=== PATIENT | female | born 1965 | race Caucasian/White ===

== ENCOUNTER 2024-08-27 17:31 | Emergency (ER) | payer BC ==
[2024-08-27] MEDS ORDERED: Sodium Chloride 0.9% 10 ML Syringe FLUSH PRN (17:33)
[2024-08-27] MEDS: Aspirin 81 MG Tab.Chew PO ONE (17:39)
[2024-08-27 17:48] LABS: BASOPHILS ABSOLUTE AUTO 0.04 K/uL (0.00-0.20); BASOPHILS PERCENT AUTO 0.6 % (0.0-2.0); EOSINOPHILS ABSOLUTE AUTO 0.06 K/uL (0.00-0.50); EOSINOPHILS PERCENT AUTO 0.9 % (0.0-5.0); HEMOGLOBIN 13.3 g/dL (11.7-15.5); IMMATURE GRAN ABSOLUTE AUTO 0.01 10^3/uL (0.00-0.04); IMMATURE GRAN PERCENT AUTO 0.1 % (0.0-0.4); LYMPHOCYTES ABSOLUTE AUTO 2.51 K/uL (0.50-3.50); MEAN CORPUSCULAR HEMOGLOBIN 27.5 pg (28.2-33.3); MEAN CORPUSCULAR HGB CONC 32.4 g/dL (31.7-36.0); MEAN CORPUSCULAR VOLUME 84.9 fL (84.0-98.0); MONOCYTES ABSOLUTE AUTO 0.55 K/uL (0.00-1.00); MONOCYTES PERCENT AUTO 8.1 % (2.0-14.0); NEUTROPHILS ABSOLUTE AUTO 3.62 K/uL (1.40-7.00); NEUTROPHILS PERCENT AUTO 53.3 % (45.0-80.0); PLATELET COUNT,PLT 248 K/uL (150-350); RED BLOOD CELL COUNT 4.83 M/uL (3.77-5.09); RED CELL DISTRIBUTION WIDTH 13.2 % (11.2-14.1); WHITE BLOOD CELL COUNT,WBC 6.8 K/uL (4.0-10.2)
[2024-08-27] MEDS ORDERED: Labetalol 20 MG/4 ML Syringe IVPUSH ONE (18:02)
[2024-08-27 18:11] LABS: PROTHROMBIN TIME 9.9 SEC (9.0-11.1); PTT,PARTIAL THROMBOPLSTIN TIME 24.5 SEC (23.8-34.4)
[2024-08-27 18:18] LABS: BILIRUBIN TOTAL 0.3 mg/dL (0.2-1.0); C-REACTIVE PROTEIN 1.56 mg/dL (0.05-0.30); CALCIUM 9.3 mg/dL (8.5-10.1); CARBON DIOXIDE,CO2 30.8 mmol/L (21.0-32.0); CREATININE 0.76 mg/dL (0.51-1.17); EST CRCL DRUG DOSING (CG) 75.53 mL/min; MAGNESIUM 1.9 mg/dL (1.8-2.4); POTASSIUM,K 3.8 mmol/L (3.5-5.1); PROTEIN TOTAL,TP 8.3 g/dL (6.4-8.2)
[2024-08-27 18:59] LABS: TSH ULTRASENSITIVE 1.409 mIU/mL (0.358-3.740)
[2024-08-27 19:08] VITALS: BP 149/83; PULSE 58
[2024-08-27] MEDS: Meclizine 25 MG Tab PO ONE (19:34)
[2024-08-27] MEDS: Furosemide 20 MG Tab PO ONE (20:24)
[2024-08-28 03:28] LABS: HEMOGLOBIN A1C 8.2 % (4.3-5.7)
== END 2024-08-27 20:31 | disposition home or self-care (01) ==
LOC: LL.ED 17:31
DX: I10 Essential (primary) hypertension (principal); Z87.891 Personal history of nicotine dependence; Z88.5 Allergy status to narcotic agent; Z79.899 Other long term (current) drug therapy
CPT/HCPCS: 70450; 71045; 80053; 82150; 83036; 83605; 83690; 83735; 83880; 84436; 84443; 84484; 85025; 85379; 85610; 85730; 86140; 93005; 93010; 99284; 99285; A9270-GY